=== PATIENT | female | born 1950 | race African-American/Black ===

== ENCOUNTER 2017-06-16 13:53 | Outpatient (CLI) | payer MEDICARE, OTHER, SELFPAY | END 2017-06-16 13:54 | disposition home or self-care (01) | LOC: DTY/OP 13:53 | PROVIDERS: ATTEND Surgery | DX: Z48.815 Encounter for surgical aftercare following surgery on the digestive system (principal); E78.5 Hyperlipidemia, unspecified; E11.9 Type 2 diabetes mellitus without complications; I10 Essential (primary) hypertension; Z98.84 Bariatric surgery status | CPT/HCPCS: 97802 ==

== ENCOUNTER 2018-04-18 10:38 | Outpatient (CLI) | payer MEDICARE, MEDICAID | END 2018-04-18 10:39 | disposition home or self-care (01) | LOC: BICMAMMO 10:38 | PROVIDERS: ATTEND Family Medicine | DX: Z12.31 Encounter for screening mammogram for malignant neoplasm of breast (principal); R92.1 Mammographic calcification found on diagnostic imaging of breast | CPT/HCPCS: 77063; 77067 ==

== ENCOUNTER 2018-09-24 14:00 | Inpatient (IN) | payer MEDICARE ==
[2018-09-26 14:14] VITALS: BMI 38.0
[2018-10-01] MEDS ORDERED: Heparin 5,000 UNITS/ML VIAL ONE (06:40)
[2018-10-01] MEDS ORDERED: ceFAZolin Sodium (SDC) 2 GM/100 ML BAG ONE (06:40)
[2018-10-01] MEDS ORDERED: Bupivacaine/Epinephrine 0.25% 30 ML VIAL ONE (06:57)
[2018-10-01] MEDS ORDERED: Fentanyl 100 MCG/2 ML VIAL ONE (07:08)
[2018-10-01] MEDS ORDERED: Midazolam HCl 2 mg/2 ml Vial ONE (07:33)
--- NOTE | 2018-10-01 07:37 | HP ---
CHIEF COMPLAINT: Morbid obesity. HISTORY OF PRESENT ILLNESS: The patient is a 67-year-old female, who has been obese for many years. She has attempted multiple weight loss programs without success. She is here for sleeve gastrectomy. PAST MEDICAL HISTORY: Significant for diabetes mellitus, hypertension, congestive heart failure, renal insufficiency, chronic anemia, gout, cardiomyopathy with an ejection fraction of 35%. PAST SURGICAL HISTORY: Hysterectomy, cardiac catheterization, carpal tunnel, hemodialysis catheter placement. FAMILY HISTORY: Father alive at 80. Mother . SOCIAL HISTORY: . No tobacco. No alcohol. ALLERGIES: HYDROCHLOROTHIAZIDE, METFORMIN, AND SPIRONOLACTONE. PHYSICAL EXAMINATION: VITAL SIGNS: Height 64, weight 225, body mass index 38.7. GENERAL: Well-developed, well-nourished female, in no apparent distress. HEENT: Good hair growth. No alopecia. Pupils are equal, round, and reactive. Extraocular movements are intact. Pharynx clear. Good dentition. NECK: Supple. No thyroid masses. No carotid bruits. LUNGS: Clear. HEART: Regular rate and rhythm. ABDOMEN: Soft, nondistended, nontender. Good bowel sounds. No hernias. EXTREMITIES: Good pulses. No pedal edema. ASSESSMENT: Morbid obesity with multiple comorbidities. PLAN: Laparoscopic sleeve gastrectomy. CONSENT: I have discussed planned procedure as well as risk of bleeding, infection, injury to esophagus, spleen, loops of bowel, leakage from staple line. She understands and gives informed consent. Job ID: [id number]
[2018-10-01] MEDS ORDERED: Promethazine HCl 25 MG/ML VIAL IM PRN ×2 (09:02→09:17)
[2018-10-01] MEDS ORDERED: Insulin Regular 300 UNITS/3 ML VIAL SC PRN ×2 (09:02→14:38)
[2018-10-01] MEDS ORDERED: hydrALAZINE 20 MG/ML VIAL SLOW IVP PRN (09:02)
[2018-10-01] MEDS ORDERED: diphenhydrAMINE 50 MG/ML VIAL IVP PRN ×2 (09:02→09:17)
[2018-10-01] MEDS ORDERED: Ondansetron PF 4 MG/2 ML Vial IVP PRN ×2 (09:02→09:17)
[2018-10-01] MEDS ORDERED: Dextrose 50% Abboject 50 ML SYRINGE SLOW IVP PRN (09:02)
[2018-10-01] MEDS ORDERED: Dextrose 5% in Water 1,000 ML IV PRN ×2 (09:02→14:38)
[2018-10-01] MEDS ORDERED: diphenhydrAMINE 50 MG/ML VIAL IM PRN (09:17)
[2018-10-01] MEDS ORDERED: fentaNYL Citrate/PF 2,000 MCG in Sodium Chloride 0.9% 60 ML IV PRN (09:17)
[2018-10-01] MEDS ORDERED: Naloxone HCl 0.4 mg/ml Vial IV PRN (09:17)
[2018-10-01] MEDS ORDERED: Zolpidem Tartrate 5 MG TAB PO PRN (09:17)
[2018-10-01] MEDS ORDERED: diphenhydrAMINE 25 MG CAP PO PRN (09:17)
[2018-10-01] MEDS ORDERED: Communication Order-Pharmacy FS SCH (09:30)
[2018-10-01] MEDS ORDERED: Sodium Chloride 0.9% (PF) 10 ML VIAL FS PRN (09:37)
[2018-10-01] MEDS ORDERED: Dextrose 50% Abboject 50 ML SYRINGE IVP PRN (14:38)
[2018-10-01] MEDS: CEFAZOLIN 2 GM in Sodium Chloride 0.9% 100 ML IVPB SCH ×2 (15:13→23:01)
[2018-10-01] MEDS: Sodium Chloride 0.9% 1,000 ML IV SCH ×3 (15:13→23:03)
--- NOTE | 2018-10-01 15:50 | OP ---
DATE OF PROCEDURE: 10/01/2018 PREOPERATIVE DIAGNOSIS: Morbid obesity. PROCEDURES PERFORMED: Laparoscopic sleeve gastrectomy, esophagogastroscopy. INDICATIONS: A 67-year-old female, morbidly obese with multiple comorbidities, who has attempted multiple weight loss programs without success. FINDINGS: A 38-Hungarian bougie used. DESCRIPTION OF PROCEDURE: After informed consent was obtained, the patient was taken to the operating room and given general endotracheal anesthesia, placed in the supine position. Abdomen was prepped and draped in usual fashion. Local anesthesia was infiltrated subcutaneously and deep. A 12-mm incision was performed approximately 8 inches above the xiphoid slightly to the left. A Veress needle was inserted. Drop test was performed. Pneumoperitoneum was created to a pressure of 15 mmHg. The patient was placed in steep reverse Trendelenburg position. Brooke liver retractor was inserted. Left lobe of liver retracted superiorly. The pylorus was identified. A 12 mm port placed on the right, beneath it two 12s were placed on the left subcostal. The omentum was taken off the greater curvature 5 cm from the pylorus utilizing the LigaSure. Short gastrics were divided with LigaSure. Left crura defined with LigaSure. A 38-Hungarian bougie was inserted, directed into the antrum. The linear 60 mm green load stapler was used to divide the antrum to the bougie, gold load along the bougie, and a series of blues through the angle of His. Intraoperative endoscopy was performed. The video endoscope was inserted under direct vision and advanced into the sleeve. The staple line was inspected. There was no bleeding. Staple line then tested by inflating the new stomach with pressurized air under water. There was no air leak. Stomach was decompressed. Scope was removed. The remnant stomach was removed from the abdomen through the left lateral port site. The fascia was closed with 0 Vicryl suture and the GraNee needle. Trocars and retractors were removed. Hemostasis had been assured and the skin was closed with interrupted 4-0 Rapide. Dermabond was applied. The patient tolerated the procedure well, transferred to Recovery in good condition. Sponge and needle count verified correct x2. Job ID: [id number]
[2018-10-01] MEDS ORDERED: Ondansetron PF 4 MG/2 ML Vial ONE (17:09)
[2018-10-01] MEDS ORDERED: Metoprolol Tartrate 5 MG/5 ML VIAL ONE (17:09)
[2018-10-01] MEDS ORDERED: Glycopyrrolate 0.2 MG/ML 5 ML SYRINGE ONE (17:09)
[2018-10-01] MEDS ORDERED: Rocuronium Bromide 10 MG/ML (10ML VIAL) ONE (17:09)
[2018-10-01] MEDS ORDERED: PROPOFOL 200 MG/20 ML VIAL ONE (17:09)
[2018-10-02] MEDS ORDERED: Enoxaparin Sodium 30 MG/0.3 ML SYRINGE SC SCH (06:00)
[2018-10-02 06:24] LABS: #Eosinphils 0.2 thou/uL (0.0-0.7); #Lymphocytes 1.3 thou/uL (1.20-3.40); #Monocytes 0.5 thou/uL (0.11-0.59); #Neutrophils 3.7 thou/uL (1.40-6.50); %Basophils 0.4 % (0.0-1.0); %Eosinophils 4.1 % (0.0-10.0); %Lymphocytes 23.1 % (21.0-51.0); %Monocytes 9.3 % (0.0-10.0); %Neutrophils 63.2 % (42.0-75.0); Hemoglobin 10.3 g/dL (12.0-16.0); Mean Corpuscular HGB CONC 32.5 g/dL (32.0-36.0); Mean Corpuscular Hemoglobin 31.9 pg (27.0-31.0); Mean Corpuscular Volume 98.2 fL (78.0-98.0); Mean Platelet Volume 9.1 fL (7.4-10.4); Platelet Count 121 thou/uL (130-400); RBC Distribution Width 13.6 % (11.5-14.5); Red Blood Cell (RBC) Count 3.23 mill/uL (4.20-5.40); White Blood Cell (WBC) Count 5.8 thou/uL (4.8-10.8)
[2018-10-02 06:50] LABS: Anion Gap 17 mmol/L (10-20); BUN (Urea Nitrogen) 52 mg/dL (9.8-20.1); Calc. Creatinine Clearance 11 mL/min (70-130); Calcium 7.8 mg/dL (7.8-10.44); Carbon Dioxide 22 mmol/L (23-31); Chloride 99 mmol/L (98-107); Estimated GFR-MDRD 6; Glucose 88 mg/dL (80-115); Potassium 4.3 mmol/L (3.5-5.1); Sodium 134 mmol/L (136-145)
--- NOTE | 2018-10-02 07:25 | PDOC.GSPN ---
Surgery Progress Note: Subj - Subjective Narrative: Pt. reports feeling well with minimal pain. Had an episode of nausea yesterday but has decreased since. Denies any reflux or other associated sxs. Surgery Progress Note: Obj - Vital signs Vital signs: Vital Signs - Most Recent Temp Pulse Resp BP Pulse Ox 98.4 F 79 16 115/67 97 10/02/18 07:22 10/02/18 07:22 10/02/18 07:22 10/02/18 07:22 10/02/18 07:22 - Physical Exam General: no distress Cardiovascular: regular rate and rhythm, no murmur Respiratory: clear to auscultation, normal expansion, normal respiratory effort Abdomen: soft, appropriately tender Wound: healing well Surgery Progress Note: Results - Labs Result Diagrams: 10/02/18 06:05 10/02/18 06:05 Lab results: Laboratory Results - last 24 hr 10/01/18 10/02/18 10/02/18 23:53 05:36 06:05 WBC RBC Hgb Hct MCV MCH MCHC RDW Plt Count MPV Neutrophils % Lymphocytes % Monocytes % Eosinophils % Basophils % Neutrophils # Lymphocytes # Monocytes # Eosinophils # Basophils # Sodium 134 L Potassium 4.3 Chloride 99 Carbon Dioxide 22 L Anion Gap 17 BUN 52 H Creatinine 7.86 H Estimated GFR (MDRD) 6 Glucose 88 POC Glucose 99 89 Calcium 7.8 10/02/18 06:05 WBC 5.8 RBC 3.23 L Hgb 10.3 L Hct 31.7 L MCV 98.2 H MCH 31.9 H MCHC 32.5 RDW 13.6 Plt Count 121 L MPV 9.1 Neutrophils % 63.2 Lymphocytes % 23.1 Monocytes % 9.3 Eosinophils % 4.1 Basophils % 0.4 Neutrophils # 3.7 Lymphocytes # 1.3 Monocytes # 0.5 Eosinophils # 0.2 Basophils # 0.0 Sodium Potassium Chloride Carbon Dioxide Anion Gap BUN Creatinine Estimated GFR (MDRD) Glucose POC Glucose Calcium Surgery Progress Note: A/P - Problem (1) Status post gastrectomy Current Visit: Yes Status: Acute Assessment and Plan: Continue to monitor nausea and pain level. Swallow study to be conducted this morning and will be undergoing dialysis today. Advancement of diet to go through Dr. Simental
[2018-10-02] MEDS: Pantoprazole 40 MG VIAL IVP SCH (08:04)
[2018-10-02] MEDS: Sodium Chloride 0.9% 1,000 ML IV SCH (08:05)
--- NOTE | 2018-10-02 09:23 | RAD ---
UPPER GI: HISTORY: Postoperative day #1, vertical gastric sleeve. COMPARISON: None. TECHNIQUE: The patient swallowed 15 mL of Gastrografin. FINDINGS: The 15 mL of Gastrografin passed, without any delay, from the esophagus into the residual stomach. A small gastric outpouching is noted, which is contiguous with the residual stomach. No leak or extra vasation. Contrast opacifies the proximal small bowel loops. IMPRESSION: No leak or extravasation. POS: OFF
[2018-10-02] MEDS ORDERED: GASTROGRAFIN 30 ML BOT ONE (10:11)
--- NOTE | 2018-10-02 10:14 | CON ---
DATE OF CONSULTATION: HISTORY OF PRESENT ILLNESS: Ms. Azevedo is a 67-year-old black female with known history of ESRD on maintenance hemodialysis and recently underwent a sleeve gastrectomy due to her morbid obesity. We are now being consulted for her maintenance hemodialysis. I am currently dialyzing the patient. We are minimizing fluid removal due to the decreased p.o. intake. REVIEW OF SYSTEMS: No chest pain. Positive for postoperative pain. No nausea. No vomiting. No shortness of breath. No diarrhea. No constipation. No headache. No diplopia. No fever or chills. No gross hematuria. No dysuria. No hematochezia. No melena. No hematemesis. MEDICATIONS: Home medications with this patient includes the following; 1. Hydralazine 50 mg p.o. b.i.d. 2. Clonidine 0.3 mg p.o. b.i.d. 3. Sevelamer one pack p.o. t.i.d. 4. Lovastatin 20 mg at bedtime. 5. Insulin Levemir 4 units subcu at bedtime. 6. Vitamin D3 of 5000 international units daily. 7. Carvedilol 25 mg p.o. b.i.d. 8. Aspirin 81 mg daily. PAST MEDICAL HISTORY: 1. History of morbid obesity. 2. ESRD on maintenance hemodialysis. 3. Type 2 diabetes mellitus. 4. The patient also has history of hyperphosphatemia. 5. Secondary hyperparathyroidism. 6. Diabetic retinopathy. 7. Status post CVA. 8. History of cardiomyopathy. 9. ? Hyperlipidemia. 10. Hypertension. 11. Gout. PAST SURGICAL HISTORY: 1. Recently status post bariatric surgery/sleeve gastrectomy. 2. Status post cholecystectomy. 3. Status post carpal tunnel repair. 4. Status post hysterectomy. 5. Status post cardiac cath. 6. Status post laser eye surgery. 7. Status post bilateral salpingo-oophorectomy. 8. Status post AV fistula. 9. Status post cuffed dialysis catheter placement. ALLERGIES: HYDROCHLOROTHIAZIDE AND METFORMIN. TRAUMA: None. IMMUNIZATION: Up-to-date. HOSPITALIZATIONS: Please see past medical history. FAMILY HISTORY: Positive family history of ESRD. SOCIAL HISTORY: The patient is . Lives with her . Lives in [place]. Two children. Retired e business manager. No alcohol use. No history of smoking. Education, high school. No blood transfusion. PHYSICAL EXAMINATION: VITAL SIGNS: Blood pressure is noted at 115/67, heart rate 79, respiratory rate 16, temperature 98.4, and pulse ox 97%. GENERAL: Awake, alert, comfortable, not in distress. SKIN: Adequate turgor. HEENT: Pinkish conjunctivae. Anicteric sclerae. NECK: No neck mass. No carotid bruits. No JVD. CHEST: No deformities. LUNGS: Clear breath sounds. No wheezing. No crackles. HEART: Normal sinus rhythm. No murmur. No gallops. No rubs. ABDOMEN: Globular, soft, and nontender. No masses. EXTREMITIES: No edema. NEUROLOGIC: Awake and oriented to 3 spheres. Moving all extremities. No tremors. No asterixis. No ataxia. LABORATORY DATA: Laboratories of October 02, 2018, white count 5.8 and hemoglobin 10.3. Sodium 134, potassium 4.3, chloride 99, carbon dioxide 22, BUN 52, creatinine 7.86, glucose 88, and calcium 7.8. ASSESSMENT AND PLAN: 1. Anemia. Start Epogen 7500 units subcu daily. 2. End-stage renal disease. Hemodialysis on Monday, , and Monday. She is currently undergoing dialysis. We are using no heparin. Fluid removal about 1 L. I will shorten the treatment today by 30 minutes. 3. Morbid obesity recently status post bariatric surgery, stable. Agree with current management. Job ID: [id number]
[2018-10-02] MEDS ORDERED: EPOETIN ALFA-EPBX (ESRD) 4,000 UNIT/ML VIAL SC SCH (10:45)
[2018-10-02] MEDS: Hydrocodone-Acetamin 15 ML UDCUP PO PRN (18:46)
[2018-10-02] MEDS: Carvedilol 25 MG TAB PO SCH (20:30)
[2018-10-03] MEDS: Hydrocodone-Acetamin 15 ML UDCUP PO PRN (06:21)
[2018-10-03 08:05] VITALS: BP 112/65; TEMP 98.3
[2018-10-03] MEDS: Carvedilol 25 MG TAB PO SCH (08:17)
[2018-10-03] MEDS: Pantoprazole 40 MG VIAL IVP SCH (08:27)
[2018-10-03] MEDS ORDERED: Enoxaparin Sodium 30 MG/0.3 ML SYRINGE SC SCH (09:00)
--- NOTE | 2018-10-03 09:41 | PRG ---
DATE OF SERVICE: 10/03/2018 SUBJECTIVE: Ms. Azevedo is a 67-year-old black female with ESRD and recently underwent a laparoscopic gastric sleeve placement. Doing well. She is tolerating p.o. Denies any new complaints. We are following her up for a maintenance hemodialysis. She underwent hemodialysis yesterday without any difficulty. She voices no new complaints. The patient has no chest pain or shortness of breath. OBJECTIVE: VITAL SIGNS: Blood pressure 112/65, heart rate 75, respiratory rate 18, temperature 98.3, and pulse ox 97%. GENERAL: Noted to be awake, alert, comfortable, not in overt distress. SKIN: Adequate turgor. HEENT: Pinkish conjunctivae. Anicteric sclerae. NECK: No neck mass. No carotid bruits. No JVD. CHEST: No deformities. LUNGS: Clear breath sounds. HEART: Normal sinus rhythm. No murmur. No gallops. No rubs. ABDOMEN: Globular, soft, nontender. No masses. Positive for a surgical wound/dressing. EXTREMITIES: No edema. No deformities. MEDICATIONS: Medications of October 03, 2018, were reviewed. LABORATORY DATA: Laboratories of October 02, 2018; white count 5.8, hemoglobin 10.3. Sodium 134, potassium 4.3, chloride 99, carbon dioxide 22, BUN 52, creatinine 7.86, glucose 88, and calcium 7.8. ASSESSMENT AND PLAN: 1. Anemia. Continuing weekly Epogen of Procrit. 2. End-stage renal disease, stable. No indication for an acute dialytic intervention today. We will continue current Monday, , and Monday dialysis. 3. Morbid obesity-recently status post a bariatric surgery, doing well. Surgery is following. Overall, agree with current management. Job ID: [id number]
--- NOTE | 2018-10-03 12:33 | DIS ---
DATE OF ADMISSION: 10/01/2018 DATE OF DISCHARGE: 10/03/2018 DISCHARGE DIAGNOSES: 1. Morbid obesity. 2. Renal failure. 3. Diabetes. PROCEDURES DURING ADMISSION: Laparoscopic sleeve gastrectomy, intraoperative esophagogastroscopy, postoperative Gastrografin swallow, and dialysis treatment. HOSPITAL COURSE: The patient was admitted, taken to the operating room, where she underwent a sleeve gastrectomy. Postoperatively, her swallow was fine. She went to dialysis. She is now doing well. She is tolerating liquids well. Her pain is controlled on p.o. medications. She is discharged home on hydrocodone and Zofran as well as usual medication. She will follow up with me in 2 weeks. Job ID: [id number]
== END 2018-10-03 09:30 | disposition home or self-care (01) | DRG 619 ==
LOC: SURG A 10-01 05:58
PROVIDERS: ADMIT Surgery; ATTEND Surgery
PROC: 0DB64Z3 Excision of Stomach, Percutaneous Endoscopic Approach, Vertical (ICD-10-PCS; principal; 2018-10-01)
PROC: 5A1D70Z Performance of Urinary Filtration, Intermittent, Less than 6 Hours Per Day (ICD-10-PCS; 2018-10-02)
DX: E66.01 Morbid (severe) obesity due to excess calories (principal); N18.6 End stage renal disease; I13.2 Hypertensive heart and chronic kidney disease with heart failure and with stage 5 chronic kidney disease, or end stage renal disease; N25.81 Secondary hyperparathyroidism of renal origin; E11.22 Type 2 diabetes mellitus with diabetic chronic kidney disease; I50.9 Heart failure, unspecified; Z99.2 Dependence on renal dialysis; D63.1 Anemia in chronic kidney disease; M10.9 Gout, unspecified; E11.319 Type 2 diabetes mellitus with unspecified diabetic retinopathy without macular edema; E78.5 Hyperlipidemia, unspecified; Z88.8 Allergy status to other drugs, medicaments and biological substances; Z68.38 Body mass index [BMI] 38.0-38.9, adult; Z79.82 Long term (current) use of aspirin; Z79.84 Long term (current) use of oral hypoglycemic drugs
CPT/HCPCS: 36415; 36416; 74241; 80048; 85025; 88307; 88312; 90935; 94760; C9113; G0257; J0690; J1644; J1650; J2250; J2405; J2704; J3010; J3490; Q5105; Q9963

== ENCOUNTER 2018-09-26 13:35 | Outpatient (CLI) | payer MEDICARE ==
--- NOTE | 2018-09-26 15:17 | RAD ---
EXAM: CHEST TWO VIEWS: 09/26/18 HISTORY: Preoperative evaluation. COMPARISON: 08/05/15. FINDINGS: Minimal cardiomegaly. Mild bilateral vascular congestion but no overt edema, confluent pneumonia, ple ural effusion or other acute process. IMPRESSION: Mild cardiomegaly. Mild vascular congestion. Atherosclerosis of the aorta. Minimal right hemidiaphrag m elevation. POS: RRE
[2018-09-26 15:19] LABS: #Basophils 0.1 thou/uL (0.0-0.2); #Eosinphils 0.3 thou/uL (0.0-0.7); #Lymphocytes 1.9 thou/uL (1.20-3.40); #Monocytes 0.6 thou/uL (0.11-0.59); #Neutrophils 2.8 thou/uL (1.40-6.50); %Eosinophils 4.6 % (0.0-10.0); %Lymphocytes 33.2 % (21.0-51.0); %Monocytes 11.3 % (0.0-10.0); %Neutrophils 49.9 % (42.0-75.0); Hemoglobin 10.9 g/dL (12.0-16.0); Mean Corpuscular HGB CONC 32.8 g/dL (32.0-36.0); Mean Corpuscular Hemoglobin 32.3 pg (27.0-31.0); Mean Corpuscular Volume 98.8 fL (78.0-98.0); Mean Platelet Volume 8.7 fL (7.4-10.4); Platelet Count 154 thou/uL (130-400); RBC Distribution Width 13.8 % (11.5-14.5); Red Blood Cell (RBC) Count 3.38 mill/uL (4.20-5.40); White Blood Cell (WBC) Count 5.7 thou/uL (4.8-10.8)
[2018-09-26 15:27] LABS: Hemoglobin A1c 7.3 % (4.0-6.0)
[2018-09-26 15:40] LABS: ALT (SGPT) 12 U/L (8-55); AST (SGOT) 21 U/L (5-34); Albumin 3.6 g/dL (3.4-4.8); Alkaline Phosphatase 149 U/L (40-150); Anion Gap 15 mmol/L (10-20); BUN (Urea Nitrogen) 36 mg/dL (9.8-20.1); Bilirubin, Direct 0.2 mg/dL (0.1-0.3); Bilirubin, Total 0.5 mg/dL (0.2-1.2); Calc. Creatinine Clearance 0 mL/min (70-130); Calcium 8.9 mg/dL (7.8-10.44); Carbon Dioxide 27 mmol/L (23-31); Chloride 98 mmol/L (98-107); Estimated GFR-MDRD 8; Globulin 3.1 g/dL (2.4-3.5); Glucose 185 mg/dL (80-115); Potassium 4.1 mmol/L (3.5-5.1); Protein, Total 6.7 g/dL (6.0-8.3); Sodium 136 mmol/L (136-145)
== END 2018-09-26 13:36 | disposition home or self-care (01) ==
LOC: LABBT 13:35
PROVIDERS: ATTEND Surgery
DX: Z01.818 Encounter for other preprocedural examination (principal); I11.9 Hypertensive heart disease without heart failure; I50.9 Heart failure, unspecified; E11.9 Type 2 diabetes mellitus without complications; Z68.38 Body mass index [BMI] 38.0-38.9, adult
CPT/HCPCS: 71046; 80053; 80076; 83036; 85025; 93005; 93010

== ENCOUNTER 2019-11-27 08:52 | Outpatient (CLI) | payer MEDICARE ==
--- NOTE | 2019-11-27 10:12 | MMO ---
Bilateral MAMMO Bilat Screen [facility]. CLINICAL HISTORY: Patient is 68 years old and is seen for screening. The patient has no family history of breast cancer. The patient has no personal history of cancer. VIEWS: The views performed were: bilateral craniocaudal with tomosynthesis and bilateral mediolateral oblique with tomosynthesis. FILMS COMPARED: The present examination has been compared to a prior imaging study performed at [facility] on 04/18/2018. This study has been interpreted with the assistance of computer-aided detection. MAMMOGRAM FINDINGS: The breasts are almost entirely fat. There are no suspicious masses, suspicious calcifications, or new areas of architectural distortion. IMPRESSION: THERE IS NO MAMMOGRAPHIC EVIDENCE OF MALIGNANCY. A ROUTINE FOLLOW-UP MAMMOGRAM IN 1 YEAR IS RECOMMENDED. THE RESULTS OF THIS EXAM WERE SENT TO THE PATIENT. ACR BI-RADS Category 1 - Negative MAMMOGRAPHY NOTE: 1. A negative mammogram report should not delay a biopsy if a dominant of clinically suspicious mass is present. 2. Approximately 10% to 15% of breast cancers are not detected by mammography. 3. Adenosis and dense breasts may obscure an underlying neoplasm. Reported by: MONO CHAN MD Electonically Signed: [id number]
== END 2019-11-27 08:53 | disposition home or self-care (01) ==
LOC: BICMAMMO 08:52
PROVIDERS: ATTEND Family Medicine
DX: Z12.31 Encounter for screening mammogram for malignant neoplasm of breast (principal)
CPT/HCPCS: 77063; 77067

== ENCOUNTER 2020-11-30 09:34 | Outpatient (CLI) | payer MEDICARE | END 2020-11-30 09:35 | disposition home or self-care (01) | LOC: BICMAMMO 09:34 | PROVIDERS: ATTEND Family Medicine | DX: Z12.31 Encounter for screening mammogram for malignant neoplasm of breast (principal) | CPT/HCPCS: 77063; 77067 ==

== ENCOUNTER 2021-12-17 09:38 | Outpatient (CLI) | payer MEDICARE | END 2021-12-17 09:39 | disposition home or self-care (01) | LOC: BICMAMMO 09:38 | PROVIDERS: ATTEND Family Medicine | DX: Z12.31 Encounter for screening mammogram for malignant neoplasm of breast (principal) | CPT/HCPCS: 77063; 77067 ==